=== PATIENT | female | born 1965 | race Two or more races ===

== ENCOUNTER → 2017-09-03 | Outpatient (CLI) | payer OTHER | LOC: FIMAGING 13:46 | DX: Z12.31 Encounter for screening mammogram for malignant neoplasm of breast (principal) | CPT/HCPCS: G0202 ==

== ENCOUNTER → 2018-09-05 | Outpatient (CLI) | payer OTHER | LOC: FIMAGING 11:04 | PROVIDERS: ATTEND Obstetrics & Gynecology Gynecology | DX: Z12.31 Encounter for screening mammogram for malignant neoplasm of breast (principal) ==

== ENCOUNTER 2018-12-18 08:08 | Day surgery (SDC) | payer OTHER ==
[2018-12-18] MEDS ORDERED: LR 1,000 ML IV ONE (08:20)
[2018-12-18] MEDS ORDERED: LR 500 ML IV PRN (08:23)
[2018-12-18] MEDS ORDERED: MEPERIDINE 25 MG/0.5 ML AMP IVP PRN (08:23)
[2018-12-18] MEDS ORDERED: HYDROmorphONE/DILAUDID 2 MG/ML INJ IVP PRN (08:23)
[2018-12-18] MEDS ORDERED: NALOXONE HCL 0.4 MG/ML INJ IVP PRN (08:23)
[2018-12-18] MEDS ORDERED: oxyCODONE IR 5 MG TAB PO PRN (08:23)
[2018-12-18] MEDS ORDERED: ONDANSETRON 4 MG/2 ML VIAL IVP PRN (08:23)
[2018-12-18] MEDS ORDERED: METOCLOPRAMIDE 10 MG/2 ML VIAL IVP PRN (08:23)
[2018-12-18] MEDS ORDERED: MIDAZOLAM 2 MG/2 ML VIAL IVP ONE (08:23)
[2018-12-18] MEDS ORDERED: PHENYLEPHRINE HCL 100 MCG/ML SYR IVP PRN (08:23)
[2018-12-18] MEDS ORDERED: PROMETHAZINE HCL 25 MG/ML INJ IVP PRN (08:23)
[2018-12-18] MEDS ORDERED: fentaNYL 250 MCG/5 ML INJ ONE (09:17)
[2018-12-18] MEDS ORDERED: ROCURONIUM 50 MG/5 ML VIAL ONE (09:17)
[2018-12-18] MEDS ORDERED: ONDANSETRON 4 MG/2 ML VIAL ONE (09:17)
[2018-12-18] MEDS ORDERED: DEXAMETHASONE 4 MG/ML VIAL ONE (09:17)
[2018-12-18] MEDS ORDERED: LIDOCAINE 2% 5 ML SDV ONE (09:17)
[2018-12-18] MEDS ORDERED: PROPOFOL 200 MG/20 ML VIAL ONE (09:18)
--- NOTE | 2018-12-18 09:28 | PDHPUP ---
History & Physical Update H&P update statement: This history and physical update is based on an assessment of the patient which was completed after admission or registration (within 24 hours), but prior to the surgery/procedure. H&P update: H&P reviewed & patient examined, no change in patient's condition since H&P completed
[2018-12-18] MEDS ORDERED: BUPIVACAINE 0.25% 30 ML SDV ONE (09:30)
--- NOTE | 2018-12-18 10:01 | PDANEPAE ---
ANE Past Medical History - Cardiovascular History Hx Hypertension: Yes Hx Arrhythmias: No Hx Chest Pain: No Hx Coronary Artery / Peripheral Vascular Disease: No Hx CHF / Valvular Disease: No Hx Palpitations: No - Pulmonary History Hx COPD: No Hx Asthma/Reactive Airway Disease: Yes Hx Recent Upper Respiratory Infection: No Hx Oxygen in Use at Home: No Hx Sleep Apnea: Yes Sleep Apnea Screening Result - Last Documented: Positive Pulmonary History Comment: MILD ASTHMA. [place] USES ORAL MOUTH GUARD - Neurologic History Hx Cerebrovascular Accident: No Hx Seizures: No Hx Dementia: No - Endocrine History Hx Diabetes: No Endocrine History Comment: NIDDM - Renal History Hx Renal Disorders: Yes Renal History Comment: UA FREQUENCY - Liver History Hx Hepatic Disorders: No - Neurological & Psychiatric Hx Hx Neurological and Psychiatric Disorders: No - Cancer History Hx Cancer: No - Congenital Disorder History Hx Congenital Disorders: No - GI History Hx Gastrointestinal Disorders: Yes Gastrointestinal History Comment: INTERMITTENT HEARTBURN WILL USE RX OCCASIONALLY. COLONOSCOPY 10/2018 - Other Health History Other Health History: RT ADENEXAL MASS. OSTEOARTHRITIS TRACY HIPS. WEAKNESS RT KNEE - Chronic Pain History Chronic Pain: Yes (RT KNEE WITH STAIR CLIMBING DOING PT) - Surgical History Prior Surgeries: HYSTEROSCOPY REMVL POLYP 01/2011 ANE Review of Systems Review of Systems: - Exercise capacity METS (RN): 5 METS ANE Patient History - Allergies Allergies/Adverse Reactions: No Known Allergies Allergy (Unverified 01/25/11 13:34) - Home Medications Home Medications: Acyclovir PRN 12/04/18 [Last Taken 2 Months Ago ~10/18/18] Coreg HS 12/04/18 [Last Taken 12/17/18] Crestor DAILY 12/04/18 [Last Taken 12/18/18 06:30] Ibuprofen PRN 12/04/18 [Last Taken 2 Weeks Ago ~12/04/18] Janumet 50-500 mg Tablet DAILY 12/04/18 [Last Taken 12/17/18] Losartan Potassium DAILY 12/04/18 [Last Taken 12/18/18 06:30] Ranitidine HCl PRN 12/04/18 [Last Taken 12/18/18 06:30] Tylenol 12/18/18 [Last Taken 12/16/18] - NPO status NPO Since - Liquids (Date): 12/18/18 NPO Since - Liquids (Time): 06:30 NPO Since - Solids (Date): 12/17/18 NPO Since - Solids (Time): 20:00 - Smoking Hx Smoking Status: Never smoked ANE Labs/Vital Signs - Vital Signs Blood Pressure: 123/83 Heart Rate: 69 Respiratory Rate: 18 O2 Sat (%): 95 Height: 154.94 cm Weight: 56.699 kg ANE Physical Exam - Airway Neck exam: FROM Mallampati Score: Class 2 Mouth exam: normal dental/mouth exam - Pulmonary Pulmonary: no respiratory distress, no rales or rhonchi, clear to auscultation - Cardiovascular Cardiovascular: regular rate and rhythym, no murmur, rub, or gallop - ASA Status ASA Status: III ANE Anesthesia Plan Anesthesia Plan: general endotracheal anesthesia
[2018-12-18] MEDS ORDERED: SUGAMMADEX SODIUM 200 MG/2 ML VIAL IVP ONE (10:38)
[2018-12-18] MEDS ORDERED: KETOROLAC 30 MG/1 ML SDV ONE (10:53)
[2018-12-18] MEDS ORDERED: fentaNYL 100 MCG/2 ML INJ ONE (11:14)
[2018-12-18] MEDS: fentaNYL 100 MCG/2 ML INJ IVP PRN ×2 (11:17→11:25)
--- NOTE | 2018-12-18 11:54 | POSTOPPROG ---
Post Op Note Date of Operation: 12/18/18 Surgeon: Jocelyn Carlos Anesthesiologist: Jack Vazquez Anesthesia: GET(General Endotracheal) Pre-op Diagnosis: left adnexal mass Post-op Diagnosis: same Indication: persistent complex adnexal mass Procedure: L/S LSO / removal of mass Findings: 4 cm complex adnexal cyst Inf/Abcess present in the surg proc area at time of surgery?: No EBL: Minimal Complications: none
--- NOTE | 2018-12-18 12:12 | POSTANESTH ---
Post Anesthetic Evaluation Cardiovascular Status: Normal, Stable Respiratory Status: Normal, Stable Level of Consciousness/Mental Status: Can Participate in Eval Pain Control: Adequate, Prn Tx Ordered Nausea/Vomiting Control: Adequate, Prn Tx Ordered Complications Possibly Related to Anesthesia: None Noted
--- NOTE | 2018-12-18 12:35 | GOP ---
DATE OF OPERATION: 12/18/2018 SURGEON: Jocelyn Carlos MD ANESTHESIA: General endotracheal. ANESTHESIOLOGIST: Jack Vazquez MD. PREOPERATIVE DIAGNOSIS: Persistent complex left adnexal mass. POSTOPERATIVE DIAGNOSIS: Persistent complex left adnexal mass plus adhesive disease. PROCEDURE PERFORMED: Laparoscopic removal of left adnexal mass and left salpingo-oophorectomy. FINDINGS: Significant adhesive disease with the uterus being somewhat adhesed to the bladder, and th en there was an adhesion from the right lower pelvic sidewall to the anterior abdominal wall. Left a dnexa had a complicated-appearing cyst, and left fallopian tube appeared normal. Right ovary had a s imple cyst and normal appearance. ESTIMATED BLOOD LOSS: Minimal. DESCRIPTION OF PROCEDURE: With informed consent signed, patient taken to the operating room and plac ed under general anesthesia, placed in a low dorsal lithotomy position, prepped and draped in usual s terile fashion. Park catheter placed. Tenaculum placed on the anterior of the cervix and Angelic hilary ferny placed in the cervical os for uterine manipulation. Gloves were changed and attention turned to the abdomen. The incision sites were injected with 0.25% Marcaine, and then scalpel was used to make the 1st incision in the inferior aspect of the umbilicus. A Veress needle placed with ease into the abdominal cavity which was then insufflated with CO2 gas. Once an adequate pneumoperitoneum was dev eloped, a trocar placed, and then laparoscope placed showing appropriate placement and no entrance in jury. The suprapubic trocar was then placed and then findings as noted above. In the left lower debbie drant, incision was made, a 10 mm incision with a scalpel, and then 10 mm trocar placed. The suprapu bic incision site was used to grasp the adnexa, and the LigaSure cutting device was used to transect the infundibulopelvic ligament, keeping a tension on the ureter that was peristalsing normally, and t hen the LigaSure device was used to cauterize across the broad ligament and then the utero-ovarian li gament, and the proximal end of the fallopian tube. Once the left adnexa was completely transected, it was placed into an endobag and then removed from the left lower quadrant incision site. There was an adhesion that I transected with the LigaSure, the one from the lower pelvis to the abdominal wall , and then the trocars were removed. Abdomen deflated, and the left lower quadrant incision site was closed with a 2-0 Vicryl with the fascia and then a 3-0 Vicryl with the skin, and the other 2 incisi ons were closed with interrupted suture. Then the tenaculum and Angelic cannula were removed from the c ervix. Patient placed in supine position, awakened in the operating room, taken to recovery room in stable condition tolerating the procedure well. COMPLICATIONS: None. /[id number]/MODL
[2018-12-18] MEDS ORDERED: oxyCODONE IR 5 MG TAB ONE (13:32)
[2018-12-18 14:31] VITALS: BP 104/61
== END 2018-12-18 14:30 | disposition home or self-care (01) ==
LOC: FSGY 08:08
PROVIDERS: ATTEND Obstetrics & Gynecology Gynecology
PROC: 0UB10ZZ Excision of Left Ovary, Open Approach (ICD-10-PCS; principal; 2018-12-18 09:30)
PROC: 0UB60ZZ Excision of Left Fallopian Tube, Open Approach (ICD-10-PCS; principal; 2018-12-18 09:30)
DX: N83.02 Follicular cyst of left ovary (principal); N83.8 Other noninflammatory disorders of ovary, fallopian tube and broad ligament
CPT/HCPCS: J1100; J1885; J2250; J2405; J2704; J3010